=== PATIENT | male | born 1945 | race Caucasian/White ===

== ENCOUNTER 2019-02-07 08:55 | Inpatient (IN) ==
--- NOTE | 2019-02-01 12:55 | Anesthesiology Consultation ---
Date of Service February 01, 2019 Assessment & Plan Chart Review Chart Review: Acceptable Risk for Surgery pt was originally scheduled to have this procedure completed 10/11/18 but was delayed 2/2 preop CXR showed a possible finding of pneumonitis (pt also admitted to cough); he has since been reevaluated and cleared by PCP. Per PCP note 01/23/19, 'pt acceptable risk for procedure'. Pt has also been seen by Heme/Onc (history of MGUS) and Urology (history of prostate Ca) and they have both stated 'no CI to procedure'. Consults Requested none Teaching & Discussion med teaching completed by RN via phone interview History Surgery Operation Date: 02/07/19 13:35 Proposed Procedures p Right Anterior Total Hip Arthroplasty - Yadiel Tolliver DO Height/Weight Height: 5 ft 10 in Weight: 86.636 kg Allergies Allergy/AdvReac Type Severity Reaction Status Date / Time No Known Allergies Allergy Verified 02/01/19 12:51 Medications Home Medications Medication Instructions Recorded Confirmed Last Taken ascorbic acid (vitamin C) [Vitamin 1,000 mg PO DAILY 01/20/19 01/20/19 Unknown C] cholecalciferol (vitamin D3) 4,000 unit PO DAILY 01/20/19 01/20/19 Unknown [Vitamin D3] lycopene 10 mg PO DAILY 01/20/19 01/20/19 Unknown plant stanol blane [Cholest Off] 900 mg PO DAILY 01/20/19 01/20/19 Unknown pomegranate fruit extract 250 mg PO DAILY 01/20/19 01/20/19 Unknown Past Medical History Medical History BPH (benign prostatic hyperplasia) Cancer PROSTATE CANCER (UNDER SURVEILLANCE) Degenerative disc disease Elevated blood protein FOLLOWS WITH ONCOLOGIST YEARLY; per recent note from Heme/Onc, pt with hx MGUS which is stable Kidney stones Peripheral neuropathy SENSORY NEUROPATHY Post traumatic stress disorder HX Tachycardia 2 YEARS AGO, HAD NORMAL CARDIAC WORKUP Past Family History Family History Other No significant family history Past Surgical History Surgical History H/O hand surgery RIGHT INDEX FINGER LIGAMENT REPAIR H/O prostate biopsy H/O wrist surgery RIGHT History of adenoidectomy History of appendectomy History of cholecystectomy History of cystoscopy + KIDNEY STONES REMOVAL History of lithotripsy History of tonsillectomy History of tooth extraction Varicocele REPAIR Social History Smoking Status: Never smoker Do You Dip or Chew Tobacco: No Hx Alcohol Use: No Hx Substance Use: No substance use type: does not use Testing Laboratory Results 01/19/19: UA: Neg Ha1c: 5.3% T&S: O+Ab- WBC: 4.54 Hgb: 15.7 Hct: 46.3 Plt: 248 Na: 142 K: 4.1 Chloride: 109 CO2: 24.9 BUN: 27.7 Creat: 0.97 Glucose: 92 PT: 11.8 INR: 1.05 Electrocardiogram Date: 09/23/18 Findings: + NSR @ (83 with occasional PVCs) Stress Test Date: 09/21/14 Type: nuclear Normal perfusion study. Normal systolic function with ejection fraction of 76%. Functional capacity was above average. No EKG signs of ischemia. Overall probability of stress-induced ischemia low.
--- NOTE | 2019-02-06 19:30 | History & Physical Report ---
Date of Service February 06, 2019 Assessment & Plan (1) Degenerative joint disease of right hip: I have indicated the patient for right anterior total hip replacement. The risks, benefits and complications of surgery were explained to the patient which include but not limited to infection, acute blood loss, DVT/PE, injury to nerves, vessels, bone, soft tissue, arthrofibrosis, chronic pain, failure of the prosthesis, hip dislocation, leg length discrepancy, need for additional surgery, cardiac and pulmonary events and . The patient wished to proceed with surgery and informed consent was obtained at this time. We will plan for Xarelto post-operatively for DVT prophylaxis. Upon discharge the patient will be discharged home with home health services. Appropriate clearances by PCP, Urology, Heme/onc were obtained. History of Present Illness Chief Complaint: Right hip pain/djd Primary Care Provider: Dr. Christina Cool The patient is a 73 year old male who presents with complaints of severe right hip pain and DJD. The patient has failed outpatient conservative treatments to this point which included NSAIDs, home walking/exercise program, patient declined IA hip injection. The patient's pain and limited function have progressed to the point where they severely hinder their activities of daily living and they no longer tolerate exercise programs. They are requesting to proceed with total hip replacement surgery. Allergies Allergy/AdvReac Type Severity Reaction Status Date / Time No Known Allergies Allergy Verified 02/07/19 09:23 Home Medications Home Medications Medication Instructions Recorded Confirmed Type ascorbic acid (vitamin C) [Vitamin 1,000 mg PO DAILY 01/20/19 02/07/19 History C] cholecalciferol (vitamin D3) 4,000 unit PO DAILY 01/20/19 02/07/19 History [Vitamin D3] lycopene 10 mg PO DAILY 01/20/19 02/07/19 History plant stanol blane [Cholest Off] 900 mg PO DAILY 01/20/19 02/07/19 History pomegranate fruit extract 250 mg PO DAILY 01/20/19 02/07/19 History Past Med/Surg History Medical History BPH (benign prostatic hyperplasia) Cancer PROSTATE CANCER (UNDER SURVEILLANCE) Degenerative disc disease Elevated blood protein FOLLOWS WITH ONCOLOGIST YEARLY; per recent note from Heme/Onc, pt with hx MGUS which is stable Kidney stones Peripheral neuropathy SENSORY NEUROPATHY Post traumatic stress disorder HX Tachycardia 2 YEARS AGO, HAD NORMAL CARDIAC WORKUP Surgical History H/O hand surgery RIGHT INDEX FINGER LIGAMENT REPAIR H/O prostate biopsy H/O wrist surgery RIGHT History of adenoidectomy History of appendectomy History of cholecystectomy History of cystoscopy + KIDNEY STONES REMOVAL History of lithotripsy History of tonsillectomy History of tooth extraction Varicocele REPAIR Family History Other No significant family history Social History Preferred Language: Korean Communication Ability: Effective Bilingual Medical Receptionist Required: No Beliefs That Will Affect Care: None Current Living Situation: Spouse Other Information That Helps Us Care for You: No Feels Safe at Home: Yes Safety Concerns: Feels Safe At This Time Smoking Status: Never smoker Do You Dip or Chew Tobacco: No ; Second Hand Exposure: No ; Tobacco Cessation Education Requested by Patient: No Hx Alcohol Use: No Hx Substance Use: No Review of Systems Review of Systems: All systems reviewed & are unremarkable except as noted in HPI & below Constitutional: as per Subjective / HPI Physical Exam Physical Exam: RLE NVSI +EHL/FHL/TA/GS SILT grossly, +2 DP pulse, compartments soft NT, limited painful ROM of the hip, antalgic gait. Constitutional: WD/WN, vitals as above Eyes: PERRL, conjunctivae normal, anicteric sclerae ENMT: external ear and nose normal, oropharynx normal Neck: trachea midline, no thyromegaly Respiratory: normal respiratory effort, lungs clear to auscultation Cardiovascular: RRR, no murmur, no edema Gastrointestinal (Abdomen): normal bowel sounds, soft, nontender, no hepatosplenomegaly Musculoskeletal: no cyanosis or clubbing, extremities motor strength 5/5 Skin: no rashes, warm and dry Neurologic: patellar DTR's 2+ bilat, sensation intact Psychiatric: A+Ox3, euthymic affect Lymphatic: no cervical or axillary lymphadenopathy Results & Data Diagnostic Findings Multiple views of the hip demonstrates severe DJD with complete loss of the joint space. +osteophytes, +sclerosis, +subchondral cysts.
[~2019-02-07 08:55] MED LIST: ACETAMINOPHEN 500 MG TAB PO SCH; BUPIVACAINE 0.5 % 5 MG/1 ML PF 10ML VIAL ONE; CEFAZOLIN 2000MG 2,000 MG/15 ML SYR IV SCH; CeleBREX 200 MG CAP PO SCH; FAMOTIDINE 20 MG TAB PO SCH; GABAPENTIN 300 MG CAP PO SCH; LR 500ML BOLUS, THEN 15ML/HR IV SCH; METOCLOPRAMIDE HCL 10 MG TABLET PO SCH; ROPIVACAINE 0.5% HCL/PF 150 MG, BUPIVACAINE 0.5% MPF 30 ML, EPINEPHrine 30MG/30ML (OR U... INSTIL SCH; dexAMETHasone 4 MG TAB PO SCH
[2019-02-07] MEDS ORDERED: MIDAZOLAM HCL 1 MG/ML 2ML VIAL ONE ×2 (09:18→10:43)
[2019-02-07] MEDS ORDERED: fentaNYL citrate 100 MCG/2 ML VIAL ONE (09:18)
--- NOTE | 2019-02-07 09:29 | History & Physical Bridge Note ---
Date of Service February 07, 2019 History & Physical Bridge Note I have examined the patient, reviewed the History & Physical and in the interval since the performance of the History & Physical I have noted the following changes of clinical significance: no changes noted
[2019-02-07] MEDS ORDERED: ATROPINE SULFATE 0.1 MG/ML 10ML SYR IV PRN (10:01)
[2019-02-07] MEDS ORDERED: ONDANSETRON INJ 2 MG/ML 2 ML VIAL IV PRN ×2 (10:01→14:10)
[2019-02-07] MEDS ORDERED: ePHEDrine sulfate 50 MG/ML AMP IV PRN (10:01)
[2019-02-07] MEDS ORDERED: fentaNYL citrate 100 MCG/2 ML VIAL IV PRN (10:01)
[2019-02-07] MEDS ORDERED: BACITRACIN INJ 50,000 UNIT VIAL ONE (10:14)
[2019-02-07] MEDS ORDERED: PROPOFOL IV EMULSION 10 MG/ML 20 ML VIAL IV ONE ×3 (11:11→12:27)
[2019-02-07] MEDS ORDERED: PHENYLEPHRINE 100MCG/ML 5ML SYR ONE ×2 (11:11→12:29)
[2019-02-07] MEDS ORDERED: ePHEDrine sulfate 50 MG/ML SYR ONE (12:37)
--- NOTE | 2019-02-07 12:39 | Post Operative Brief Note ---
Immediate Post Op Note v1 Date of Surgery February 07, 2019 Pre & Post Diagnosis Operation Date: 02/07/19 11:25 Pre-Op Diagnosis: Right Hip Osteoarthritis Post-Op Diagnosis: Right Hip Osteoarthritis Procedure Operation Date: 02/07/19 11:25 Actual Procedures p Right Anterior Total Hip Arthroplasty(Right) - Yadiel Tolliver DO Surgeon Yadiel Tolliver DO Physiotherapist'S Assistant Cesar Serrano Estimated Blood Loss 250 Findings Consistent with Post-Op Diagnosis Fluids 1400 cc LR Specimens femoral head Anesthesia Type Spinal MAC Complications none Disposition Disposition: Recovery Room Overlapping Procedure I was present for: the critical portions of procedure. I was immediately available: during the entire case. Back up surgeon: was not required during procedure.
--- NOTE | 2019-02-07 12:53 | Operative Report ---
Post Operative Report Pre & Post Diagnosis Operation Date: 02/07/19 11:25 Pre-Op Diagnosis: Right Hip Osteoarthritis Post-Op Diagnosis: Right Hip Osteoarthritis Procedure Operation Date: 02/07/19 11:25 Actual Procedures p Right Anterior Total Hip Arthroplasty(Right) - Yadiel Tolliver DO Surgeon Yadiel Tolliver DO Manager Plumbing Cesra Serrano Estimated Blood Loss 250 Findings Consistent with Post-Op Diagnosis Fluids 1400 cc LR Specimens femoral head Anesthesia Type Spinal MAC Complications none Disposition Disposition: Recovery Room Indications The patient is a 73-year-old male who presents with severe progressive right hip DJD who has failed outpatient conservative treatments. I indicated the patient for a total hip replacement and the risks and benefits were explained in detail which included but not limited to infection, bleeding, blood clot, damage to surrounding bone, nerves, vessels, soft tissue, hip dislocation, failure of the prosthesis, leg length discrepancy, need for additional surgery and . The patient agreed to proceed with replacement of the hip and informed consent was obtained. Appropriate clearances were obtained. Description of Procedure COMPONENTS USED: [employer] hip system: Acetabulum size 54, femur size 10 high offset, femoral head 36+0, liner 3654, acetabular screw 25 mm x 1. DESCRIPTION OF PROCEDURE: Following satisfactory spinal anesthesia, the patient was placed supine on the OR table. The left leg was placed in the well leg pires and the right leg in the traction device. The right leg was prepared with ChloraPrep and draped sterilely. A surgical timeout was performed, patient identified and site alpesh verified. Appropriate antibiotics were given. A standard anterior approach in the interval between the sartorius and tensor muscles was performed. Dissection was carried down through subcutaneous tissues. Electrocautery was utilized for hemostasis. Circumflex femoral vessels were identified, tied and ligated. The anterior capsular fat pad was removed and the capsulotomy was performed revealing the arthritic femoral neck and head. A femoral neck cut was made with reciprocating saw and the bone fragments removed. The acetabular self-retraining retractor was placed. Acetabular reaming was completed under fluoroscopic guidance, a 54 shell was impacted into an anatomic position and secured with a dome screw. Local anesthetic was placed and following irrigation, the polyethylene liner was placed. The femur was placed into position of external rotation, extension and adduction. Femoral canal was prepared up to the size 10 high offset. Trial reduction with a +0 neck length head showed good soft tissue tension, leg lengths restored, and good fit and fill of the proximal canal using fluoroscopic landmarks. The hip was dislocated. The trial component was removed. The final implant was placed. The hip was irrigated with sterile saline solution and reduced. A Betadine soak was performed. After 3 minutes, the hip was once more irrigated with copious sterile saline solution with bacitracin. Rose-incisional soft tissue was injected utilizing [place] [employer] which includes a combination of Ropivicaine 0.5% 150mg, Bupivicaine 0.5%/Epinephrine 1:200,000 30ml, Toradol 30mg, Dexamethasone 4mg, Ketamine 10mg, Clonidine 100mcg and NSS 30ml solution. The capsule was then closed with 1-0 Vicryl interrupted figure of eight sutures. The fascia was closed with a running suture of #1 Vicryl, the subcutaneous tissues with 2-0 Vicryl and the skin with a running subcuticular stitch of 3-0 V-Loc. Dermabond prineo and a dry dressing were applied. The patient tolerated the procedure well and was transported to PACU in stable condition. Due to the complex nature of the procedure, the entire surgery was performed with the operational assistance of Cesar Serrano PA-C. The lead recreation assistant, under direct supervision, was involved in the actual performance of all aspects of the surgical procedure including patient positioning, hemostasis, tissue retraction, instrument management and wound closure. I attest to the content of the Intraoperative Record and any orders documented therein. Any exceptions are noted below.
--- NOTE | 2019-02-07 12:56 | Fluoroscopy Report ---
FL hip RT 1V CLINICAL HISTORY: RIGHT ANTERIOR TOTAL HIP ARTHROPLASTY COMPARISON STUDY: Right hip 09/23/2018. FLUOROSCOPY TIME: 1 minute and 9 seconds. FINDINGS: 2 fluoroscopic spot images of the right hip demonstrate a right total hip arthroplasty. The hardware is intact. No fracture or dislocation. IMPRESSION: Fluoroscopy provided for right total hip arthroplasty. Electronically signed by: Tru Gonsalves M.D. 02/07/2019 12:54 PM
--- NOTE | 2019-02-07 13:36 | Anesthesiology Progress Note ---
Date of Service February 07, 2019 Anesthesia Post Procedure Vital Signs Vital Signs: Temp Pulse Pulse Resp BP Pulse Ox 02/07/19 13:30 87 16 133/80 95 02/07/19 13:20 84 16 134/75 95 02/07/19 13:10 83 16 124/70 98 02/07/19 13:03 97.7 F 89 16 118/72 98 02/07/19 09:17 97.9 F 77 18 168/93 H 96 Transfer of Care Handoff Completed per policy Notes Mental Status: alert / awake / arousable and participated in evaluation Patient Amnestic to Procedure: Yes Nausea / Vomiting: adequately controlled Pain: adequately controlled Airway Patency, RR, SpO2: stable & adequate BP & HR: stable & adequate Hydration State: stable & adequate Neuraxial Anesthesia: was administered and sensory block is resolving Anesthetic Complications: no major complications apparent and Pt Satisfied with anesthetic care
--- NOTE | 2019-02-07 14:09 | XRay Report ---
XR hip 1V RT w pelvis CLINICAL HISTORY: Postoperative study COMPARISON: 09/23/2018 DISCUSSION: There are postsurgical changes of a total right hip arthroplasty. The acetabular femoral components appear well seated. There is no dislocation. There are extensive vascular calcifications. A corticated ossific density located lateral to the acetabulum remains unchanged. IMPRESSION: Postsurgical changes of a total right hip arthroplasty. No evidence of dislocation Electronically signed by: Christiano Lubin M.D. 02/07/2019 2:08 PM
[2019-02-07] MEDS ORDERED: BISACODYL 10 MG SUPP PR PRN (14:10)
[2019-02-07] MEDS ORDERED: METOCLOPRAMIDE HCL INJ 5 MG/ML 2 ML VIAL IV PRN (14:10)
[2019-02-07] MEDS ORDERED: HYDROmorphone INJ 0.5 MG/0.5 ML SYR IV PRN (14:10)
[2019-02-07] MEDS ORDERED: SODIUM CHLORIDE 0.9% 1000ML 1,000 ML IV SCH (14:10)
[2019-02-07] MEDS ORDERED: MAGNESIUM HYDROXIDE SUSP 30 ML UDC PO PRN (14:10)
[2019-02-07] MEDS ORDERED: NALOXONE HCL 0.4 MG/1 ML VIAL/CARP IV PRN (14:10)
[2019-02-07] MEDS ORDERED: OXYCODONE HCL IR 5 MG TAB (IMMEDIATE RELEASE) PO PRN (14:10)
[2019-02-07] MEDS: CEFAZOLIN 2000MG 2,000 MG/15 ML SYR IV SCH (17:29)
[2019-02-07] MEDS: ACETAMINOPHEN 500 MG TAB PO SCH (19:39)
--- NOTE | 2019-02-07 20:31 | Orthopedic Progress Note ---
Date of Service February 07, 2019 Assessment & Plan (1) Degenerative joint disease of right hip: s/p R anterior SHE -Ancef x 24 -DVT ppx: SCDs, TEDs, Xarelto -WBAT RLE -PT/OT -PO XR demonstrates well aligned well fixed orthopedic prothesis without fracture/dislocation. -am labs -DC planning Subjective Post Operative Progress Note Patient seen sitting up in bed, comfortable, denies complaints, pain well controlled, no acute issues. Review of Systems Review of Systems: All systems reviewed & are unremarkable except as noted in HPI & below Constitutional: as per Subjective / HPI Physical Exam Physical Exam: RLE NVSI +EHL/FHL/TA/GS SILT grossly, sensation at baseline, +2 DP pulse, compartments soft NT, dressing cdi. Constitutional: WD/WN, vitals as above Results & Data Vital Signs (Past 12 Hours) Vital Signs Temp Pulse Pulse Resp BP Pulse Ox 02/07/19 19:24 36.6 C 104 H 16 155/78 H 95 02/07/19 16:55 36.5 C 95 H 18 153/85 H 96 02/07/19 15:54 36.5 C 93 H 18 135/79 96 02/07/19 14:58 36.5 C 86 18 143/83 H 93 02/07/19 14:10 80 16 142/85 H 95 02/07/19 13:40 37.1 C 87 19 129/75 95 02/07/19 13:30 87 16 133/80 95 02/07/19 13:20 84 16 134/75 95 02/07/19 13:10 83 16 124/70 98 02/07/19 13:03 36.5 C 89 16 118/72 98 02/07/19 09:17 36.6 C 77 18 168/93 H 96
[2019-02-07] MEDS: DOCUSATE SODIUM 100 MG CAP PO SCH (20:46)
[2019-02-07] MEDS ORDERED: SENNA 8.6 MG TAB PO SCH (21:00)
[2019-02-08] MEDS: CEFAZOLIN 2000MG 2,000 MG/15 ML SYR IV SCH (01:43)
[2019-02-08] MEDS: ACETAMINOPHEN 500 MG TAB PO SCH ×2 (06:02→13:30)
[2019-02-08 06:26] LABS: Basophils # (auto) 0.01 K/uL (0-0.2); Basophils % (auto) 0.1 %; Hematocrit (blood only) 37.8 % (42-52); Immature Granulocytes # (auto) 0.05 K/uL (0.00-0.02); Immature Granulocytes % (auto) 0.4 %; Lymphocytes # (auto) 1.37 K/uL (1.2-3.4); Lymphocytes % (auto) 9.9 %; Mean Corpuscular Hemoglobin 30.7 pg (25-34); Mean Corpuscular Hgb Conc 34.4 g/dL (32-36); Mean Corpuscular Volume 89.2 fL (80-100); Mean Platelet Volume 10.2 fL (7.4-10.4); Monocytes # (auto) 1.32 K/uL (0.11-0.59); Monocytes % (auto) 9.5 %; Neutrophils # (auto) 11.09 K/uL (1.4-6.5); Neutrophils % (auto) 80.1 %; Platelet Count 218 K/uL (130-400); RDW Coefficient of Variation 13.1 % (11.5-14.5); RDW Standard Deviation 42.9 fL (36.4-46.3); Red Blood Count 4.24 M/uL (4.7-6.1); White Blood Count 13.84 K/uL (4.8-10.8)
[2019-02-08 07:05] LABS: BUN Creatinine Ratio 31.6 (10-20); Creatinine Clr Calc Pharmacy 68.3 ml/min; Est GFR (African American) 87.7; Est GFR (Non-African American) 75.6; Potassium 4.3 mmol/L (3.5-5.1)
[2019-02-08] MEDS: DOCUSATE SODIUM 100 MG CAP PO SCH (08:09)
--- NOTE | 2019-02-08 08:27 | Anesthesiology Progress Note ---
Date of Service February 08, 2019 Anesthesia Post Procedure Vital Signs Vital Signs: Temp Pulse Pulse Pulse Resp BP Pulse Ox 02/08/19 08:06 36.6 C 66 16 130/77 97 02/08/19 04:09 36.7 C 74 18 130/77 95 02/07/19 23:55 147/74 H 02/07/19 23:45 97/57 L 02/07/19 23:40 36.8 C 76 18 87/51 L 96 02/07/19 19:24 36.6 C 104 H 16 155/78 H 95 02/07/19 16:55 36.5 C 95 H 18 153/85 H 96 02/07/19 15:54 36.5 C 93 H 18 135/79 96 02/07/19 14:58 36.5 C 86 18 143/83 H 93 02/07/19 14:10 80 16 142/85 H 95 02/07/19 13:40 37.1 C 87 19 129/75 95 02/07/19 13:30 87 16 133/80 95 02/07/19 13:20 84 16 134/75 95 02/07/19 13:10 83 16 124/70 98 02/07/19 13:03 36.5 C 89 16 118/72 98 02/07/19 09:17 36.6 C 77 18 168/93 H 96 Pain Intensity Right Hip: Pain Intensity: 0 Notes Mental Status: alert / awake / arousable and participated in evaluation Patient Amnestic to Procedure: Yes Nausea / Vomiting: adequately controlled Pain: adequately controlled Airway Patency, RR, SpO2: stable & adequate BP & HR: stable & adequate Hydration State: stable & adequate Neuraxial Anesthesia: was administered and sensory block resolved Anesthetic Complications: no major complications apparent and Pt Satisfied with anesthetic care
[2019-02-08] MEDS ORDERED: MULTIVITAMIN TAB PO SCH (09:00)
[2019-02-08] MEDS ORDERED: RIVAROXABAN 10 MG TABLET PO SCH (09:00)
--- NOTE | 2019-02-08 13:26 | Orthopedic Progress Note ---
Date of Service February 08, 2019 Assessment & Plan (1) Degenerative joint disease of right hip: s/p R anterior SHE POD#1 -Ancef x 24 -DVT ppx: SCDs, TEDs, Xarelto -WBAT RLE -PT/OT -PO XR demonstrates well aligned well fixed orthopedic prothesis without fracture/dislocation. -am labs - 13.0 -DC planning home with HH Subjective Post Operative Progress Note Patient seen sitting up in bed, comfortable, denies complaints, pain well contro lled, no acute issues. Review of Systems Review of Systems: All systems reviewed & are unremarkable except as noted in HPI & below Constitutional: as per Subjective / HPI Physical Exam Physical Exam: RLE NVSI +EHL/FHL/TA/GS SILT grossly, +2 DP pulse, compartments soft NT, dressing cdi. Constitutional: WD/WN, vitals as above Results & Data Vital Signs (Past 12 Hours) Vital Signs Temp Pulse Resp BP Pulse Ox 02/08/19 08:06 36.6 C 66 16 130/77 97 02/08/19 04:09 36.7 C 74 18 130/77 95 Laboratory Results 02/08/19 02/08/19 Range/Units 05:46 05:46 WBC 13.84 H (4.8-10.8) K/uL RBC 4.24 L (4.7-6.1) M/uL Hgb 13.0 L (14.0-18.0) g/dL Hct 37.8 L (42-52) % MCV 89.2 (80-100) fL MCH 30.7 (25-34) pg MCHC 34.4 (32-36) g/dL RDW Std Deviation 42.9 (36.4-46.3) fL RDW Coeff of Dereje 13.1 (11.5-14.5) % Plt Count 218 (130-400) K/uL MPV 10.2 (7.4-10.4) fL Immature Gran % (Auto) 0.4 % Neut % (Auto) 80.1 % Lymph % (Auto) 9.9 % Gregg % (Auto) 9.5 % Eos % (Auto) 0.0 % Baso % (Auto) 0.1 % Immature Gran # (Auto) 0.05 H (0.00-0.02) K/uL Neut # (Auto) 11.09 H (1.4-6.5) K/uL Lymph # (Auto) 1.37 (1.2-3.4) K/uL Gregg # (Auto) 1.32 H (0.11-0.59) K/uL Eos # (Auto) 0.00 (0-0.5) K/uL Baso # (Auto) 0.01 (0-0.2) K/uL Sodium 140 (136-145) mmol/L Potassium 4.3 (3.5-5.1) mmol/L Chloride 110 H (98-107) mmol/L Carbon Dioxide 23 (21-32) mmol/L Anion Gap 7.0 (3-11) BUN 31 H (7-18) mg/dl Creatinine 0.98 (0.6-1.4) mg/dl Est Cr Clr Drug Dosing 68.3 ml/min Est GFR ( Amer) 87.7 Est GFR (Non-Af Amer) 75.6 BUN/Creatinine Ratio 31.6 H (10-20) Glucose 121 H (70-99) mg/dl Calcium 8.0 L (8.5-10.1) mg/dl
--- NOTE | 2019-02-08 22:08 | Discharge Summary ---
Date of Service February 08, 2019 Admission HPI Per Admitting Provider The patient is a 73 year old male who presents with complaints of severe right hip pain and DJD. The patient has failed outpatient conservative treatments to this point which included NSAIDs, home walking/exercise program, patient declined IA hip injection. The patient's pain and limited function have progressed to the point where they severely hinder their activities of daily living and they no longer tolerate exercise programs. They are requesting to proceed with total hip replacement surgery. Principal Diagnosis Right anterior total hip replacement Discharge Exam RLE NVSI +EHL/FHL/TA/GS SILT grossly, +2 DP pulse, compartments soft NT, dressing cdi. Constitutional WD/WN, vitals as above Discharge Data Allergies Allergy/AdvReac Type Severity Reaction Status Date / Time No Known Allergies Allergy Verified 02/07/19 09:23 Consultations 02/08/19 08:00 Consult Case Management - Discharge Planning Routine Procedures Performed Operation Date: 02/07/19 11:25 Actual Procedures p Right Anterior Total Hip Arthroplasty(Right) - Yadiel Tolliver DO Ordered Studies 02/07/19 07:00 FL fluoroscopy <1hr Routine FL hip RT 1V Routine Hospital Course (1) Degenerative joint disease of right hip: The patient is a 73 -year-old male who presents with long standing history of severe right hip DJD and failed outpatient conservative treatments including NSAIDs, bracing, injections and home walking/exercise program. The patient's symptoms have progressed to the point where it has been difficult to perform even normal activities of daily living. I indicated the patient for a right anterior total hip arthroplasty, the risks, benefits and complications of the procedure include but not limited to infection, bleeding, damage to bone, nerves, vessels, surrounding soft tissue, may develop blood clots, loss of function, leg length discrepancy, dislocation, failure of the components, loosening of the components, the need for additional surgery and . The patient wished to proceed with surgery at this time and informed consent was obtained. Hospital Course: On 02/07/19 the patient was taken to the operating room, adequate anesthesia administered and underwent a right anterior total hip arthroplasty. The patient tolerated the procedure well and was taken to the PACU in stable condition. Post-operatively the patient was started on a DVT ppx medication and given appropriate IV antibiotics. Consults were placed to physical therapy, occupational therapy and case management. On POD#1, the patient did well overnight and their pain was well controlled. Labs were drawn and the Hgb was 13.0. The patient progressed well with PT. Dressings were changed at this time and the incision was clean, dry and intact. On POD#2, The patients hospital stay was relatively uneventful and they were deemed stable by the orthopedic team and consultants to be discharged home with HH on 02/08/19. Discharge Instructions: Upon discharge the patient may weight bear as tolerates through their operative extremity. They were instructed to keep the incision clean and dry at all times. The patient may shower but should not submerge the incision, avoid bathing, pools and hot tubes. The patient was given a script for pain medication and should take as instructed. The patient was given a script for DVT ppx Xarelto 10mg daily and should take as directed. The patient was instructed to not drive or travel for long distances until cleared to do so. If the patient develops any symptoms of fevers, chills, nausea, vomiting, increased redness, swelling, pain or drainage from the surgical site, they should notify the office and/or proceed to the nearest emergency room. The patient should follow up in 10-14 days after surgery for their routine post-operative follow-up appointment and should call the office to confirm the date and time. s/p R anterior SHE POD#1 -Ancef x 24 -DVT ppx: SCDs, TEDs, Xarelto -WBAT RLE -PT/OT -PO XR demonstrates well aligned well fixed orthopedic prothesis without fracture/dislocation. -am labs - 13.0 -DC planning home with HH Total Time Total Time Spent Total Time Spent (In Minutes): 30 minutes Total Time Includes: Examination of the Patient, Discharge Planning, Medication Reconciliation and Communication With Other Providers Discharge Plan Discharge Items Patient Disposition: Home - Home Health Services Reason For Visit: Right Hip Osteoarthritis Discharge Diagnosis: Right anterior SHE Condition: Good Discharge Goals: Decrease discomfort, Improve function, Increase independence and Therapeutic intervention Activity: Per 'Additional Instructions' section Lifting: Wait until after follow-up appointment Bathing: Keep incision dry Bathing Comment: No bathing, pools or hot tubs. Sexual Activity: Wait until after follow-up appointment Exercise/Sports: Wait until after follow-up appointment Driving/Machine Use Comment: No driving till cleared by your surgeon Weightbearing: Right weightbearing Non-emergency contact: Primary Care Provider and Surgeon Call non-emergency contact if: you have any medication questions, your symptoms worsen, your pain is not controlled, your pain is worsening, your pain is unusual for you, your pain is concerning for you, you have a fever, your temperature is above 101, your wound has increased redness, your wound has increased drainage and your wound pain has increased Follow-up/Referrals: PCP,NO [Primary Care Provider] - Diet: Regular Addtl Provider Instructions: ACTIVITY RECOMMENDATIONS: SELF CARE INSTRUCTIONS AFTER TOTAL HIP REPLACEMENT : Direct Anterior Approach Until the incision and soft tissues around your hip have healed, there is a possibility that the hip prosthesis could dislocate. A. Hip flexion ( Up & Down out of chair or steps ) may be difficult. This is normal. B. Numbness in front of the thigh is also normal for a few weeks. C. Use hand rails when walking on stairs. D. Wear low heeled shoes with non-slip soles. E. Be sure that your floors are free of things that could trip you - throw rugs, electrical cords, small objects. Avoid wet and waxed floors, especially wi th crutches and canes. F. Try to walk several times a day with rest periods between. G. Continue with all the exercises taught to you in the hospital. Again, make walking a part of your daily routine. SPECIAL CARE INSTRUCTIONS: VERY IMPORTANT TO READ AND REVIEW A. You may still be at risk for phlebitis and blood clots. 1. Wear surgical stockings (RONNY hose) for 2 weeks after surgery to improve circulation and reduce swelling. 2. Take Xarelto 10mg daily for 4 weeks or as directed by your doctor. This is your blood thinner. 3. High risk patients may be prescribed a stronger blood thinner if necessary. 4. If you are on Coumadin normally, your family doctor/inspector repairer should monitor your blood work. Expect a phone call the day of or the day after bloodwork is drawn to adjust your dosage. B. You must take antibiotics before having dental work, bladder, bowel and other surgery. Your doctor will provide you with a permanent card to carry describing precautions. C. Call [facility] if you have a fever, redness or swelling around the incision, cloudy drainage from incision, or sudden increase in pain in your hip, not relieved by your regular pain medication. D. Please call the office at if you have any concerns or questions about your operation or recovery. * YOU MAY SHOWER, NO TUB BATHS UNTIL CLEARED BY YOUR DOCTOR. - Keep an extra close eye on the top portion of your incision. Be sure to keep clean & dry. * WEAR RONNY HOSE 20 HOURS PER DAY FOR 2 WEEKS. * YOU MAY PROGRESS FROM A WALKER, TO A CANE, TO INDEPENDENT AT YOUR OWN PACE. * MOST PATIENTS WILL HAVE HOME NURSING FOR THERAPY. IF YOU DECIDE TO DO OUTPATIENT PHYSICAL THERAPY, PLEASE SCHEDULE THIS 3 TIMES PER WEEK. * DERMABOND Prineo- This is a mesh tape dressing that is covered with glue. It should remain in place until the incision is properly healed, usually 10-14 days. This dressing is designed to naturally slough off. You may trim the excess mesh tape as it peels off. Incision may be briefly wet in a shower. Dry immediately by blotting with a clean, dry towel. Do not bath or swim until instructed by your doctor. Do not scratch, rub, or pick at the dressing. Do not apply any topical ointments or lotions until dressing is completely removed and/or instructed by your doctor. There may be a small piece of suture material at one end of your incision. Do not pull or trim this. If it is bothersome or catching on clothing, you may cover it with a band-aid. FOLLOW UP VISIT: If appointment is not already scheduled: Please call [facility] to make a follow-up appointment for 2 weeks after your surgery at . Prescriptions: New Xarelto 10 mg Tablet 10 mg PO DAILY Qty: 28 RF: 0 acetaminophen [Tylenol Extra Strength] 500 mg Tablet 1,000 mg PO Q8 PRN (Reason: pain and/or fever) Qty: 90 RF: 0 oxycodone 5 mg Tablet 5 mg PO Q6H MDD 6 tabs PRN (Reason: pain) Qty: 30 RF: 0 sennosides [Senokot] 8.6 mg Tablet 17.2 mg PO HS PRN (Reason: constipation) Qty: 28 RF: 0 tramadol 50 mg Tablet 50 mg PO Q4H PRN (Reason: pain) Qty: 30 RF: 0 Continued ascorbic acid (vitamin C) [Vitamin C] 1,000 mg Tablet 1,000 mg PO DAILY RF: 0 lycopene 10 mg Capsule 10 mg PO DAILY RF: 0 Cholest Off 450 mg Tablet 900 mg PO DAILY RF: 0 cholecalciferol (vitamin D3) [Vitamin D3] 2,000 unit Tablet 4,000 unit PO DAILY RF: 0 pomegranate fruit extract 250 mg Capsule 250 mg PO DAILY RF: 0 Stand-Alone Forms: [employer], Opioid Pain Management [employer]/Other Patient Handouts: Surgery Prevent DVT After Discharge Orders: Discharge Order (Routine); Ordered 02/08/19 Ordered By: Yadiel Tolliver Admission Data Admit Date/Time: 02/07/19 13:07 Attending Provider: Yadiel Tolliver Admit Provider: Yadiel Tolliver Primary Care Provider: PCP,NO Service: Surgical Services Other Interventions: Discharge Summary Assessment (RN) Last Done: 02/08/19 13:39 DC Date/Time DO NOT enter until pt leaves facility: 02/08/19 15:57
== END 2019-02-08 15:57 | disposition home health service (06) | DRG 470 ==
LOC: ASU 08:55 → 3E 13:07

== ENCOUNTER 2022-01-02 07:26 | Observation (INO) ==
--- NOTE | 2021-11-27 09:47 | PAT Medication Instructions ---
Medication Instructions Date of Service November 27, 2021 Home Medications Medication Instructions Recorded acetaminophen 500 mg tablet 1,000 mg PO Q8 PRN #90 tab 02/07/19 (Tylenol Extra Strength) ascorbic acid (vitamin C) 1,000 mg tablet (Vitamin C) 1,000 mg PO QAM cholecalciferol (vitamin D3) 50 mcg (2,000 unit) tablet (Vitamin D3) 4,000 unit PO QAM pomegranate fruit extract 250 mg capsule 250 mg PO QAM acetaminophen 500 mg tablet (Tylenol Extra Strength) 1,000 mg PO Q8 PRN iron 50 mg iron tablet 1 tab PO QAM magnesium 250 mg tablet 250 mg PO QAM olive leaf extract 250 mg capsule 250 mg PO QAM potassium 99 mg tablet 99 mg PO QAM STOP taking 2 weeks before surgery pomegranate fruit extract 250 mg capsule 250 mg PO QAM olive leaf extract 250 mg capsule 250 mg PO QAM DO NOT take the morning of surgery ascorbic acid (vitamin C) 1,000 mg tablet (Vitamin C) 1,000 mg PO QAM cholecalciferol (vitamin D3) 50 mcg (2,000 unit) tablet (Vitamin D3) 4,000 unit PO QAM iron 50 mg iron tablet 1 tab PO QAM magnesium 250 mg tablet 250 mg PO QAM potassium 99 mg tablet 99 mg PO QAM Take morning of surgery With a small sip of water, OTHERWISE NOTHING TO EAT OR DRINK AFTER MIDNIGHT: acetaminophen 500 mg tablet (Tylenol Extra Strength) 1,000 mg PO Q8 PRN(if needed) Take evening before surgery acetaminophen 500 mg tablet (Tylenol Extra Strength) 1,000 mg PO Q8 PRN(if needed) Other Notes If you have any questions please call us at [phone] or [phone] or [phone] or [phone]
--- NOTE | 2021-12-01 11:24 | Anesthesiology Consultation ---
Date of Service December 01, 2021 Assessment & Plan (1) Encounter for pre-operative examination: - will attempt to obtain most recent heme/onc note and any available previous cardiac studies. - Pt's and pt requests staying overnight with patient as he felt cla mmy at a point during previous hospitalization after R SHE and RN put pt supine which resolved symptoms, uneventful course per discharge summary. I advised is not current visitor policy during COVID 19 restrictions, but I will see if there are other options. I spoke with [employer] former supervisor who advised pt can have RN call video poker floorman when patient is admitted and decision is to that video poker floorman. Pt and his were made aware. - COVID screening: Per assessment on 12/01/2021: Travel screen negative, no known COVID-19 positive contacts or current COVID-19 related symptoms in past 2 weeks. Surgeon arranging preop COVID testing, scheduled 12/31/2021. Awaiting results. Chart Review Chart Review: Pending: Refer to Additional Notes / Consult section and Patient seen in Pre Admission Testing Teaching & Discussion Pre-Anesthesia Teaching/Discussion Notes: Instructed NPO after midnight before surgery, except medications with 15 cc of water. Medication instructions provided according to the PAT guidelines. History Surgery Operation Date: 01/02/22 10:30 Proposed Procedures p Left Total Hip Arthroplasty Anterior - [place] Blank DO Height/Weight Height: 5 ft 10 in Weight: 91.3 kg Allergies Allergy/AdvReac Type Severity Reaction Status Date / Time No Known Allergies Allergy Verified 11/19/21 11:03 Medications Home Medications Medication Instructions Recorded Confirmed Last Taken ascorbic acid (vitamin C) 1,000 mg 1,000 mg PO QAM 01/20/19 11/19/21 01/24/19 08:00 tablet (Vitamin C) cholecalciferol (vitamin D3) 50 4,000 unit PO QAM 01/20/19 11/19/21 01/24/19 08: 00 mcg (2,000 unit) tablet (Vitamin D3) pomegranate fruit extract 250 mg 250 mg PO QAM 01/20/19 11/19/21 01/24/19 08:00 capsule acetaminophen 500 mg tablet 1,000 mg PO Q8 PRN #90 tab 02/07/19 11/19/21 Unknown (Tylenol Extra Strength) iron 50 mg iron tablet 1 tab PO QAM 11/19/21 11/19/21 Unknown magnesium 250 mg tablet 250 mg PO QAM 11/19/21 11/19/21 Unknown olive leaf extract 250 mg capsule 250 mg PO QAM 11/19/21 11/19/21 Unknown potassium 99 mg tablet 99 mg PO QAM 11/19/21 11/19/21 Unknown Past Medical History Medical History (Updated 12/01/21 @ 11:16 by Alem Manuel PA-C) BPH (benign prostatic hyperplasia) Degenerative disc disease Kidney stones Monoclonal gammopathy of undetermined significance Follows Oncology at [facility] yearly for blood work - stable Peripheral neuropathy SENSORY NEUROPATHY, feet bilat Post traumatic stress disorder HX Prostate cancer Spondylolisthesis at L3-L4 level Tachycardia 2 YEARS AGO, HAD NORMAL CARDIAC WORKUP Patient denies h/o stroke, seizures, heart attack, heart failure, DM, HTN, blood clots or blood transfusions. Exercise / Class Metabolic Activity II 4-5 Yardwork/Stairs/Walk up hill (denies CP or SOB with 1 FOS) Past Family History Family History Other No significant family history Past Surgical History Surgical History (Updated 11/27/21 @ 11:20 by Alem Manuel PA-C) H/O hand surgery RIGHT INDEX FINGER LIGAMENT REPAIR H/O prostate biopsy 2018 H/O wrist surgery RIGHT History of adenoidectomy History of appendectomy History of cholecystectomy History of cystoscopy + KIDNEY STONES REMOVAL History of lithotripsy History of tonsillectomy History of tooth extraction History of total right hip arthroplasty 02/07/19: SAB at L3-L4 1 attempt. No postop issues per anesthesia progress note. Varicocele REPAIR Past Anesthesia History No Hx of Anesthesia Complications and No Family Hx of Anesthesia Complications History of PONV No Hx of PONV and No Hx of Motion Sickness Social History Smoking Status: Never smoker Do You Dip or Chew Tobacco: No Hx Alcohol Use: No Hx Substance Use: No substance use type: does not use Review of Systems Reflux with tomato sauce. Patient denies chest pain, shortness of breath, dyspnea on exertion, snoring, witnessed apneas, fever, chills, cough, wheezing, or palpitations. Physical Exam Vital Signs Vitals BP 154/80 (usual range in clinical settings d/t anxiety/stress per pt; home readings 120/70-80s) P 60 TEMP 98.7 SP02 96% on RA RESP 17 Physical Full cervical extension range of motion without pain TMD 3.5 finger breaths Mallampati Score 2 Dentition: intact, crowns-none in front, bridge right upper side; denies chipped or loose teeth, implants Lungs: normal respiratory effort. Clear throughout to auscultation, no adventitious breath sounds Cardiac: regular rate and rhythm, no murmurs noted Carotid arteries: negative bruit bilat Lab Results Anesthesia Preop Results Results Anesthesia Widget: WBC 5.74 K/uL (4.8-10.8) 12/01/21 Hgb 15.8 g/dL (14.0-18.0) 12/01/21 Hct 45.8 % (42-52) 12/01/21 Plt 277 K/uL (130-400) 12/01/21 Na 139 mmol/L (136-145) 12/01/21 K 4.5 mmol/L (3.5-5.1) 12/01/21 Cl 108 mmol/L (98-107) H 12/01/21 CO2 26 mmol/L (21-32) 12/01/21 BUN 24 mg/dl (6-23) H 12/01/21 Creat 1.04 mg/dl (0.6-1.4) 12/01/21 Glucose Level 97 mg/dl (70-99(Fasting)) 12/01/21 PT 11.1 Seconds (9.0-12.0) 12/01/21 PTT 27.3 Seconds (21.0-31.0) 12/01/21 INR 1.0 (0.9-1.1) 12/01/21 Blood Type O Positive 12/01/21 Antibody Screen NEGATIVE 12/01/21 Testing Electrocardiogram Date: 12/01/21 NSR, rate 62 bpm Chest X-Ray Date: 12/01/21 No lines and tubes are seen. The cardiomediastinal silhouette is normal. The lungs are clear. No evidence of pleural effusion or pneumothorax. IMPRESSION: No acute chest disease.
--- NOTE | 2022-01-01 12:19 | History & Physical Report ---
Date of Service January 01, 2022 Assessment & Plan (1) Osteoarthritis of left hip: We will proceed with a left anterior total of arthroplasty. Postoperatively he will be started on aspirin for DVT prophylaxis and kept overnight in the hospital for postop medical management. He plans to have the hospital set up home health for discharge. History of Present Illness Chief Complaint: Osteoarthritis of the left hip. Primary Care Provider: NO PCP Mark is a pleasant 76-year-old male who underwent a right anterior hip replacement by Dr. Seo in 2019. He did very well with that. Unfortunately, he is dealing with left hip pain. It hurts him with every step he takes. It hurts him with internal and external rotation. All of his pain is in his groin. X-rays and clinical examination have been diagnostic for advanced arthritis of the left hip. After failing conservative treatment, he has elected to proceed with a left total hip arthroplasty. Allergies Allergy/AdvReac Type Severity Reaction Status Date / Time No Known Allergies Allergy Verified 11/19/21 11:03 Home Medications Medication Instructions Recorded Confirmed Type ascorbic acid (vitamin C) 1,000 mg 1,000 mg PO QAM 01/20/19 11/19/21 History tablet (Vitamin C) cholecalciferol (vitamin D3) 50 4,000 unit PO QAM 01/20/19 11/19/21 History mcg (2,000 unit) tablet (Vitamin D3) pomegranate fruit extract 250 mg 250 mg PO QAM 01/20/19 11/19/21 History capsule acetaminophen 500 mg tablet 1,000 mg PO Q8 PRN pain and/or 02/07/19 11/19/21 Rx (Tylenol Extra Strength) fever #90 tabs iron 50 mg iron tablet 1 tab PO QAM 11/19/21 11/19/21 History magnesium 250 mg tablet 250 mg PO QAM 11/19/21 11/19/21 History olive leaf extract 250 mg capsule 250 mg PO QAM 11/19/21 11/19/21 History potassium 99 mg tablet 99 mg PO QAM 11/19/21 11/19/21 History Past Med/Surg History Medical History BPH (benign prostatic hyperplasia) Degenerative disc disease Kidney stones Monoclonal gammopathy of undetermined significance Follows Oncology at [facility] yearly for blood work - stable Peripheral neuropathy SENSORY NEUROPATHY, feet bilat Post traumatic stress disorder HX Prostate cancer Spondylolisthesis at L3-L4 level Tachycardia 2 YEARS AGO, HAD NORMAL CARDIAC WORKUP Surgical History H/O hand surgery RIGHT INDEX FINGER LIGAMENT REPAIR H/O prostate biopsy 2017 H/O wrist surgery RIGHT History of adenoidectomy History of appendectomy History of cholecystectomy History of cystoscopy + KIDNEY STONES REMOVAL History of lithotripsy History of tonsillectomy History of tooth extraction History of total right hip arthroplasty 02/07/19: SAB at L3-L4 1 attempt. No postop issues per anesthesia progress note. Varicocele REPAIR Family History Other No significant family history Social History Smoking Status: Never smoker Second Hand Exposure: No; Hx Alcohol Use: No Hx Substance Use: No Preferred Language: Venezuelan Communication Ability: Effective Secretarial Teacher Required: No Beliefs That Will Affect Care: None marital status: Current Living Situation: Spouse Feels Safe at Home: Yes Assistive Devices: Glasses Review of Systems All systems reviewed & are unremarkable except as noted in HPI & below. Physical Exam On physical examination of the left hip, he has decreased range of motion. He has pain with forced internal and external rotation. All of his pains in his groin.. Constitutional WD/WN, vitals as above Eyes PERRL, conjunctivae normal, anicteric sclerae ENMT external ear and nose normal, oropharynx normal Neck trachea midline, no thyromegaly Respiratory normal respiratory effort, lungs clear to auscultation Cardiovascular RRR, no murmur, no edema Gastrointestinal (Abdomen) normal bowel sounds, soft, nontender, no hepatosplenomegaly Skin no rashes, warm and dry Psychiatric A+Ox3, euthymic affect Results & Data Results & Data Laboratory Results . Diagnostic Findings X-rays of the left hip show advanced osteoarthritis with joint space narrowing, osteophyte formation, and [id number] articulation. PG Care Time/CCT Total # of Minutes Spent Total Time Spent with Patient: Total time spent is greater than 50% in coordination of care (as documented) at patient's floor/unit and/or counseling patient: Coding Level of Care Code None Diagnoses Osteoarthritis of left hip M16.12
[~2022-01-02 07:26] MED LIST changes: -CEFAZOLIN 2000MG 2,000 MG/15 ML SYR IV SCH; -CeleBREX 200 MG CAP PO SCH; +Ketorolac (*for OR use only*) 30 MG, dexAMETHasone 4 MG, KETAMINE HCL (**OR use only) 1... INFIL SCH; +LR 60ML/HR IV SCH; -METOCLOPRAMIDE HCL 10 MG TABLET PO SCH; +MIDAZOLAM HCL 1 MG/ML 2ML VIAL ONE; -ROPIVACAINE 0.5% HCL/PF 150 MG, BUPIVACAINE 0.5% MPF 30 ML, EPINEPHrine 30MG/30ML (OR U... INSTIL SCH; +TRANEXAMIC ACID 1,000 MG **IV Intra-op IV SCH; +TRANEXAMIC ACID 1,000 MG **IV Pre-op IV SCH; +ceFAZolin 2000MG 2,000 MG/15 ML SYR IV SCH; +fentaNYL citrate 100 MCG/2 ML VIAL ONE
--- NOTE | 2022-01-02 08:16 | History & Physical Bridge Note ---
Date of Service January 02, 2022 History & Physical Bridge Note I have examined the patient, reviewed the History & Physical and in the interval since the performance of the History & Physical I have noted the following changes of clinical significance: no changes noted
[2022-01-02] MEDS ORDERED: ePHEDrine sulfate 50 MG/ML AMP IV PRN (08:36)
[2022-01-02] MEDS ORDERED: ONDANSETRON INJ 2 MG/ML 2 ML VIAL IV PRN ×2 (08:36→12:53)
[2022-01-02] MEDS ORDERED: ATROPINE SULFATE 0.1 MG/ML 10ML SYR IV PRN (08:36)
[2022-01-02] MEDS ORDERED: fentaNYL citrate 100 MCG/2 ML VIAL IV PRN (08:36)
[2022-01-02] MEDS ORDERED: ORTHO JOINT ANESTHETIC ONE (08:49)
[2022-01-02] MEDS ORDERED: MIDAZOLAM HCL 1 MG/ML 2ML VIAL ONE (09:31)
[2022-01-02] MEDS ORDERED: PROPOFOL IV EMULSION 10 MG/ML 20 ML VIAL IV ONE ×3 (09:33)
[2022-01-02] MEDS ORDERED: LIDOCAINE 2% MPF LOCAL 5 ML VIAL INFIL ONE (09:33)
[2022-01-02] MEDS ORDERED: ONDANSETRON INJ 2 MG/ML 2 ML VIAL ONE (09:33)
[2022-01-02] MEDS ORDERED: ePHEDrine sulfate 50 MG/ML AMP ONE (09:58)
--- NOTE | 2022-01-02 10:39 | Operative Report ---
PG Post Operative Report Pre & Post Diagnosis Operation Date: 01/02/22 09:25 Pre-Op Diagnosis: Left Hip Osteoarthritis Post-Op Diagnosis: Left Hip Osteoarthritis I identified the patient and participated in the time-out.: Yes Procedure Operation Date: 01/02/22 09:25 Actual Procedures p Left Total Hip Arthroplasty Anterior(Left) - Tacos Blank DO Surgeon Tacos Blank DO Echo Vasc Tech Tacos Moon PA-C Estimated Blood Loss 250 Findings Consistent with Post-Op Diagnosis Specimens Left femoral head Description of Procedure Implants used I used a [employer]immer[employer]omet total hip arthroplasty system with a size 7 standard offset Avenir Complete stem, a 5440 mm G7 cup with a 25mm screw, an E1 polyethylene liner, a 40 mm ceramic head with a 0 neck. Mark arrived at the hospital for the above procedure. He was seen in the preoperative holding area and the operative extremity was identified and signed. He was given a spinal anesthetic, a preoperative antibiotic, and TXA. He was then taken back to the operating room and laid on the table in the supine position. He was given basic sedation. The operative leg was secured to a Puristst leg positioner. The hip was then prepped and draped in sterile fashion. A timeout was done and the patient and the operative extremity was properly identified. An anterior approach was used. Dissection was taken down through the fascia and the tensor muscle belly was retracted laterally and the rectus was retracted medially. The circumflex vessels were identified and ligated. The capsule was then incised and tagged for later repair. The femoral neck was then cut and the femoral head was removed. The acetabulum was exposed. Time was spent doing a complete circumferential labral release. Sequential reaming of the acetabulum up to a size 53 reamer was done. Final reamings were done under fluoroscopy to ensure appropriate version. A Biomet 54 mm G7 cup was then impacted into place. A single 25 mm screw was placed. The E1 polyethylene liner was then snapped into place. Surrounding soft tissues were then injected with 100 cc of an orthopedic pain control cocktail. The proximal femur was then exposed. Sequential broaching up to a size 7 broach was done. Off that broach a size 40 head with a 0 neck was trialed. The hip was reduced and fluoroscopic images showed anatomic alignment of the implants in acceptable length. The broach was removed. The final size 7 standard offset Avenir Complete stem was then impacted into place. A ceramic 40 mm head with a 0 neck was then impacted onto the stem and the hip was reduced. Final fluoroscopic images showed anatomic alignment of the hip. The capsule was then closed with #1 Vicryl suture. A dilute betadyne lavage was then done for 3 minutes. The joint was then irrigated with normal saline solution. The fascia was closed with #1 PDS suture. Skin was closed with 2-0 Vicryl, guillermo, and a Silverlon dressing. He was then transferred to a hospital bed and taken to the post anesthesia care unit in stable condition. He tolerated the procedure well. Tacos Moon PA-C, was present for the entire procedure. He was critical for patient positioning, prepping, draping, retraction exposure, wound closure and application of sterile dressing. I attest to the content of the Intraoperative Record and any orders documented therein. Any exceptions are noted below.
--- NOTE | 2022-01-02 11:28 | XRay Report ---
XR hip 1V LT w pelvis HISTORY: 76 years-old Male IN PACU - A/P PELVIS and LATERAL HIP left hip total joint arthroplasty COMPARISON: Pelvis and hip radiographs 02/07/2019 TECHNIQUE: AP view of the pelvis with crosstable lateral view of the left hip FINDINGS: Bilateral total joint arthroplasties. Lateral left hip skin guillermo are noted along with expected pos toperative soft tissue swelling with deep tissue air. Arterial calcifications. No acute fracture, dis location or unexpected opaque foreign body. IMPRESSION: Left hip total joint arthroplasty with expected postoperative changes. ACT 112: Negative or not required by law. The above report was generated using voice recognition software. It may contain grammatical, syntax o r spelling errors. Electronically signed by: Louis Nixon M.D. 01/02/2022 11:27 AM
--- NOTE | 2022-01-02 11:30 | Fluoroscopy Report ---
FL hip LT 1V HISTORY: 76 years-old Male LT ANTERIOR left hip total joint arthroplasty COMPARISON: Pelvis and left hip radiographs of same day TECHNIQUE: 2 spot fluoroscopic images of the left hip were obtained utilizing 13.7 seconds fluoroscop y time FINDINGS: Left hip total joint arthroplasty demonstrates satisfactory alignment. Expected postoperative soft ti ssue swelling with deep tissue air. No acute fracture. IMPRESSION: Left hip total joint arthroplasty with expected postoperative changes. ACT 112: Negative or not required by law. The above report was generated using voice recognition software. It may contain grammatical, syntax o r spelling errors. Electronically signed by: Louis Nixon M.D. 01/02/2022 11:29 AM
[2022-01-02] MEDS ORDERED: SODIUM CHLORIDE 0.9% 1000ML 1,000 ML IV SCH (12:53)
[2022-01-02] MEDS ORDERED: bisacodyL 10 MG SUPP PR PRN (12:53)
[2022-01-02] MEDS ORDERED: MAGNESIUM HYDROXIDE SUSP 30 ML UDC PO PRN (12:53)
[2022-01-02] MEDS ORDERED: METOCLOPRAMIDE HCL INJ 5 MG/ML 2 ML VIAL IV PRN (12:53)
[2022-01-02] MEDS ORDERED: oxyCODONE HCL IR 5 MG TAB (IMMEDIATE RELEASE) PO PRN (12:53)
[2022-01-02] MEDS ORDERED: NALOXONE HCL 0.4 MG/1 ML VIAL/CARP IV PRN (12:53)
[2022-01-02] MEDS ORDERED: HYDROmorphone INJ 0.5 MG/0.5 ML SYR IV PRN (12:53)
--- NOTE | 2022-01-02 14:24 | Anesthesiology Progress Note ---
Date of Service January 02, 2022 Anesthesia Post Procedure Vital Signs Vital Signs: Temp Pulse Pulse Resp BP BP Pulse Ox 01/02/22 14:14 97.7 F 82 17 124/77 95 01/02/22 13:22 97.7 F 83 17 129/80 95 01/02/22 12:50 97.7 F 79 16 120/97 97 01/02/22 12:40 71 14 118/66 95 01/02/22 12:25 77 17 117/66 94 01/02/22 12:10 97.7 F 72 16 119/72 96 01/02/22 12:00 73 16 119/72 94 01/02/22 11:50 76 16 116/70 99 01/02/22 11:40 76 16 117/70 97 01/02/22 11:30 75 16 114/63 96 01/02/22 11:20 82 19 115/62 95 01/02/22 11:10 90 17 121/65 100 01/02/22 11:03 97.7 F 89 15 119/71 98 01/02/22 08:01 97.9 F 94 H 18 153/90 H 97 O2 Del Method O2 Flow Rate 01/02/22 14:14 Room Air 01/02/22 13:22 Room Air 01/02/22 12:50 Room Air 01/02/22 12:40 Room Air 01/02/22 12:25 Room Air 01/02/22 12:10 Room Air 01/02/22 12:00 Room Air 01/02/22 11:50 Room Air 01/02/22 11:40 Room Air 01/02/22 11:30 Room Air 01/02/22 11:20 Room Air 01/02/22 11:10 Oxymask 5 01/02/22 11:03 Oxymask 5 01/02/22 08:01 Room Air Pain Intensity Left Hip: Pain Intensity: 0 Transfer of Care Handoff Completed per policy Notes Mental Status: alert / awake / arousable and participated in evaluation Patient Amnestic to Procedure: Yes Nausea / Vomiting: adequately controlled Pain: adequately controlled Airway Patency, RR, SpO2: stable & adequate BP & HR: stable & adequate Hydration State: stable & adequate Neuraxial Anesthesia: was administered and sensory block is resolving Anesthetic Complications: no major complications apparent and Pt Satisfied with anesthetic care
[2022-01-02] MEDS: KETOROLAC TROMETHAMINE 15 MG/ML VIAL IV SCH ×2 (15:29→20:43)
[2022-01-02] MEDS: ACETAMINOPHEN 500 MG TAB PO SCH (17:51)
[2022-01-02] MEDS: ceFAZolin 2000MG 2,000 MG/15 ML SYR IV SCH (17:54)
[2022-01-02] MEDS: DOCUSATE SODIUM 100 MG CAP PO SCH (20:42)
[2022-01-02] MEDS: ASPIRIN 81 MG ECTAB PO SCH (20:43)
[2022-01-02] MEDS ORDERED: SENNA 8.6 MG TAB PO SCH (21:00)
[2022-01-03] MEDS: ACETAMINOPHEN 500 MG TAB PO SCH ×2 (01:31→09:19)
[2022-01-03] MEDS: KETOROLAC TROMETHAMINE 15 MG/ML VIAL IV SCH ×2 (01:32→07:57)
[2022-01-03] MEDS: ceFAZolin 2000MG 2,000 MG/15 ML SYR IV SCH (01:32)
--- NOTE | 2022-01-03 07:53 | Orthopedic Progress Note ---
Date of Service January 03, 2022 Assessment & Plan (1) Status post left hip replacement: Overall is doing very well. Is not having much pain in the left hip. He will be seen by physical therapy today for ambulation and range of motion exercises. He is on aspirin for DVT prophylaxis. He can be discharged home later today. He will follow-up with orthopedics in 2 weeks. Bhavana Flores was seen and examined at bedside this morning. Overall is doing very well. Is not having much pain in the left hip. He has been up and ambulating to the bathroom. He has no complaints.. Review of Systems All systems reviewed & are unremarkable except as noted in HPI & below. Physical Exam On physical examination of the left hip, the dressing is clean and dry. His leg lengths are equal. He has active dorsiflexion plantarflexion of his left ankle.. Results & Data Results & Data Laboratory Results . Diagnostic Findings Postoperative x-rays of the left hip show the prosthesis to be in anatomic alignment without any evidence of fracture, desiccation, or loosening. PG Care Time/CCT Total # of Minutes Spent Total Time Spent with Patient: Total time spent is greater than 50% in coordination of care (as documented) at patient's floor/unit and/or counseling patient: Coding Level of Care Code 71744 Post Operative Follow-Up Diagnoses Status post left hip replacement Z96.642
[2022-01-03] MEDS ORDERED: dexAMETHasone 4 MG TAB PO SCH (08:00)
[2022-01-03] MEDS ORDERED: MULTIVITAMIN TAB PO SCH (09:00)
[2022-01-03] MEDS ORDERED: NON-FORMULARY MEDICATION (Potassium 99 mg Tablet) PO SCH (09:00)
[2022-01-03] MEDS ORDERED: MAGNESIUM OXIDE 400 MG TAB PO SCH (09:00)
[2022-01-03] MEDS: DOCUSATE SODIUM 100 MG CAP PO SCH (09:20)
[2022-01-03] MEDS: ASPIRIN 81 MG ECTAB PO SCH (09:20)
== END 2022-01-03 11:08 | disposition home health service (06) ==
LOC: ASU 07:26 → 3N 07:26
DX: M16.12 Unilateral primary osteoarthritis, left hip; Z96.641 Presence of right artificial hip joint